=== PATIENT | female | born 1965 | race Caucasian/White ===

== ENCOUNTER 2025-05-22 09:09 | Emergency (ER) | payer OTHER ==
[~2025-05-22] VITALS: Ht 160 cm; Wt 58.6 kg
[2025-05-22 09:25] VITALS: TEMP 98.7
[2025-05-22 10:09] LABS: MEAN PLATELET VOLUME 7.1 FL (7.4-10.4); RED CELL DISTRIBUTION WIDTH 15.4 % (11.5-14.5)
[2025-05-22 10:18] LABS: LEUKOCYTE ESTERASE ,URINE SMALL (Neg); NITRITES, URINE NEGATIVE (Neg); OCCULT BLOOD,URINE NEGATIVE (Neg)
[2025-05-22 10:22] LABS: UA COLLECTION TYPE CLN CATCH MIDSTREAM
[2025-05-22 10:22] LABS: CREATININE 0.96 MG/DL (0.40-0.90); TOTAL CARBON DIOXIDE 25.7 MMOL/L (24-32); eCRCL 53 ML/MIN; eGFR 60 ML/MIN
[2025-05-22 10:25] LABS: AMORPHOUS URATES 1+; SQUAMOUS EPITHELIAL CELL,UR FEW /LPF (FEW)
--- NOTE | 2025-05-22 10:29 | Physician Documentation ---
History of Present Illness ~ Chief Complaint: Vomiting w/diarrhea Stated Complaint: N/V Time Seen by MD: 09:49 Mode of Arrival: POV HPI 60-year-old female presents to the ED with a complaint of diarrhea and vomiting x1 day. States that she does not have a history of constipation. She denies any severe abdominal pain. Reports having a bloody nose when she vomits. Also reports that her fingers feel tingly Medication Reconciliation Allergies: Coded Allergies: morphine (Unverified Allergy, Mild, rash, 05/22/25) lorazepam (Unverified Adverse Reaction, Unknown, i go nuts, 05/22/25) Scheduled Loperamide HCl (Imodium A-D), 1 CAP PO Q8H Scheduled PRN ONDANSETRON ODT 4mg tablet (Ondansetron Odt), 1 TAB PO Q6H PRN PRN for nausea/vomiting Review of Systems All Other Systems at this time: Reviewed and Negative ROS As stated above in the HPI, otherwise all systems are reviewed and negative. Physical Exam Vital Signs: Temperature: 98.7, Source: Oral, Heart Rate: 107, Respiratory Rate: 16, BP: 129/72, Pulse Oximetry: 99, Weight: 58.600 Oxygen Flow Rate: 0 Physical Exam General: Alert, no apparent distress. HEENT: PERRL, EOMI, no injection, moist mucous membranes. Neck: Full range of motion. Respiratory: Lungs clear, no respiratory distress. Chest: No accessory muscle use. Cardiovascular: Regular rate and rhythm, no murmurs. Gastrointestinal: Soft, nontender, nondistended. Bowels sounds present. Extremities: Normal range of motion, no deformity. Neurologic: Oriented x4. Psychiatric: Normal mood and affect. Skin: Normal color, warm and dry. No edema, no ecchymosis. Procedures Ultrasound Date: May 22, 2025 Progress Results/Orders Results/Orders Orders - ABDIAS GO [employer] Po Challenge (05/22/25 10:27) Recheck Vital Signs (05/22/25 11:52) Reassess Pt For Discharge (05/22/25 11:52) Completed Orders - ABDIAS [employer] Ondansetron Inj. (Zofran 4mg/2ml Vial) (05/22/25 10:30) Loperamide Capsule (Imodium Capsule) (05/22/25 10:30) Potassium Cl Sr Tablet (K-Dur Tablet) (05/22/25 10:27) Normal Saline 1000ml (0.9% Sodium Chlori (05/22/25 10:30) Vital Signs 05/22/25 05/22/25 05/22/25 05/22/25 09:25 10:07 12:11 12:12 Temp 98.7 Pulse 107 98 98 Resp 16 16 16 16 B/P (MAP) 129/72 127/83 (98) 127/83 Pulse Ox 99 99 99 O2 Flow Rate 0 0 Laboratory Tests Test 05/22/25 09:25 05/22/25 09:54 Urine Specimen Description Cln catch midstream Urine Color Dark yellow Urine Clarity Slightly cloudy Urine pH 6.0 Urine Specific [place] 1.015 Urine Protein Trace Urine Glucose (UA) Negative Urine Ketones Trace H Urine Occult Blood Negative Urine Nitrite Negative Urine Bilirubin Small Urine Urobilinogen 0.2 Urine Leukocyte Esterase Small H Urine RBC 0-2 Urine WBC 5-10 H Urine Squamous Epithelial Cells Few Urine Amorphous Urates 1+ Urine Bacteria Few Urine Culture Indicated Indicated Volume Urine Centrifuged 8 ml Urine HCG, Qualitative Negative Urine Comment Low volume White Blood Count 8.9 Red Blood Count 3.88 L Hemoglobin 12.1 Hematocrit 34.5 L Mean Corpuscular Volume 88.9 Mean Corpuscular Hemoglobin 31.0 Mean Corpuscular Hemoglobin Concent 34.9 Red Cell Distribution Width 15.4 H Platelet Count 466 H Mean Platelet Volume 7.1 L Neutrophils (%) (Auto) 78.2 H Lymphocytes (%) (Auto) 15.2 L Monocytes (%) (Auto) 5.5 Eosinophils (%) (Auto) 0.4 Basophils (%) (Auto) 0.7 Neutrophils # (Auto) 7.0 Lymphocytes # (Auto) 1.4 Monocytes # (Auto) 0.5 Eosinophils # (Auto) 0.0 Basophils # (Auto) 0.1 CBC Comment Sodium Level 135 Potassium Level 3.1 L Chloride Level 96 L Carbon Dioxide Level 25.7 Anion Gap 13 Blood Urea Nitrogen 10 Creatinine 0.96 H Estimated GFR/1.73 m2 60 BUN/Creatinine Ratio 10.4 Glucose Level 136 H Calcium Level 8.0 L Total Bilirubin 1.2 H Aspartate Amino Transf (AST/SGOT) 41 H Alanine Aminotransferase (ALT/SGPT) 23 Alkaline Phosphatase 116 Total Protein 8.4 H Albumin 3.7 Globulin 4.7 H Albumin/Globulin Ratio 0.8 L Lipase 56 Chemistry Comments Microbiology Date/Time Source Procedure Growth Status 05/22/25 10:25 Urine Clean Catch Midstream Urine Culture - Preliminary Culture received. Resulted Medical Decision Making Additional information obtaine: N/A Findings Patient received multiple medications in the ED including Imodium AD Zofran and a fluid bolus. Her laboratory values indicated likely dehydration secondary to ongoing vomiting and diarrhea. Replenish her with a potassium as well. Patient reports improved symptoms at this time I am going to discharge her Diff Dx GI Bleed:Consideration: Unlikely: AE fistula, Angiodysplasia, Bleeding diathesis, Blood loss anemia, Carcinoma, Diverticulosis, Diverticulitis, Esophageal varicies, Esophagitis, Gastritis, Gastroenteritis, Inflammatory BD, Toya-Nicholas syndrome, Meckel's diverticulum, PUD, Other Diff Dx Pain:Considerations: Unlikely: AAA, -Complete, - Incomplete, -Inevitable, -Missed, -Threatened, Abruptio placentae, Angina/CA, Aortic dissection, Appendicitis, Bowel obstruction, Cholangitis, Cholecystitis, Cholelithasis, Constipation, Diverticular disease, Dysmenorrhea, Ectopic , Esophageal rupture, Esophagitis, Gastritis/PUD, Gastroenteritis, GI hemorrhage, Hernia, Hepatitis, Inflammatory BD, Ischemic bowel, Mass, Ovarian cyst/torsion, Pancreatitis, PID, Porphyria, Trauma, intraabdominal, Urinary obstruction, Urinary tract infection, Urolithiasis, Other Diff Dx N/V/D:Considerations: Include: Appendicitis, Bowel obstruction, Dehydration, DKA, Diarrhea - bacterial, Diarrhea - parasitic, Diarrhea - viral, Diverticulitis, Diverticulosis, Drug toxicity, Electrolyte imbalance, Food poisoning, Gastroenteritis, GE reflux, GI bleed, Hepatitis, Hernia, Hypovolemia, Hypotension, Inflammatory BD, Impaction, Malnutrition, Pancreatitis, , PUD, Renal failure, Urolithiasis, Urinary obstruction, UTI, Other Diff Dx Rectal:Considerations: Unlikely: Fissure, Fistula, Foreign body, Impaction, Perirectal abscess, Rectal prolapse, Subcutaneous abscess, Thrombosed hemorrhoid, Ulcer, UTI, Other Departure Disposition: 01 HOME / SELF CARE / HOMELESS Impression: Primary Impression: Hypokalemia Additional Impression: Vomiting Condition: Stable Discharge Instructions: Diarrhea, Adult, Norovirus Infection Additional Instructions: Take medication as prescribed and if you continue to have symptoms please follow up for further evaluation Referrals: NO PRIMARY CARE PROVIDER (PCP) Prescriptions ONDANSETRON ODT 4mg tablet (ONDANSETRON ODT) 4 Mg Tab.rapdis 1 TAB PO Q6H PRN PRN for nausea/vomiting for 4 Days, #16 TAB 0 Refills Prov: ABDIAS GO NP 05/22/25 Loperamide HCl (Imodium A-D) 2 Mg Capsule 1 CAP PO Q8H for 5 Days, #15 CAP 0 Refills Prov: ABDIAS GO NP 05/22/25 Signature Scribe Signature: w Attestation: Scribed for Abdias Go [employer] [place] by Abdias Weston NP . 05/22/25 10:29 ABDIAS GO NP May 22, 2025 10:29
[2025-05-22 10:40] LABS: URINE HCG NEGATIVE (NEG)
[2025-05-22] MEDS: ondansetron/PF 4mg/2ml inj IV ONE (10:45)
[2025-05-22] MEDS: normal saline 1000ML IV soln IVB ONE (10:45)
[2025-05-22] MEDS: loperamide 2mg capsule PO ONE (10:45)
[2025-05-22] MEDS: potassium Cl 20 mEq SR tablet PO STA (10:46)
[2025-05-22] MEDS ORDERED: CEPH-585 PO (11:14)
[2025-05-22] MEDS ORDERED: ONDA-243 PO (12:11)
[2025-05-22] MEDS ORDERED: LOPE-190 PO (12:11)
[2025-05-22 12:12] VITALS: BP 127/83; PULSE 98; RESP 16; O2SAT 99
== END 2025-05-22 12:51 | disposition home or self-care (01) ==
LOC: ER 09:10
DX: E87.6 Hypokalemia (principal); R11.10 Vomiting, unspecified; Z88.5 Allergy status to narcotic agent; Z88.8 Allergy status to other drugs, medicaments and biological substances; Z79.899 Other long term (current) drug therapy
CPT/HCPCS: 36415; 80053; 81001; 81025; 83690; 85025; 87088; 96361; 96374; 99284; J2405; J7030